=== PATIENT | female | born 1970 ===

== ENCOUNTER → 2019-02-06 | Outpatient (CLI) | payer BC ==
--- NOTE | 2019-02-06 16:47 | PCVCIMAG ---
APPROVED REPORT Study performed: 02/06/2019 15:22:05 Exam: Stress Echocardiogram Indication: Chest pain with exertion Patient Location: Echo lab Stress Nurse: Susana Valenzuela RN Room #: 2 Status: routine Ht: 4 ft 11 in HR: 60 bpm BP: 110/68 mmHg Rhythm: NSR Medical History Medical History: No history of CAD Previous Cardiac Procedures: none Pretest Chest Pain Characteristics: No chest pain Exercise History: Physically active Procedure The patient underwent an Exercise Stress Test using the Oswaldo Protocol. Blood pressure, heart rate, and EKG were monitored. An Echocardiogram was performed by survey cad technician in four stages in quad fashion. At peak stress, four selected images were obtained and placed side by side with resting images for comparison. Stress Test Details Stress Test: Exercise stress testing was performed using a Oswaldo protocol. HR Resting HR: 60 bpmMax Heart Rate (APMHR): 170 bpm Max HR Achieved: 146 bpmTarget HR (85% APMHR): 144 bpm % of APMHR: 85 Recovery HR: 82 bpm HR response to stress: Normal HR response to stress BP Resting BP: 110/68 mmHg Max BP: 152/80 mmHg Recovery BP: 122/64 mmHg BP response to stress: Normal blood pressure response to stress. ECG Resting ECG: Sinus Rhythm Stress ECG: Sinus Rhythm, nonspecific ST-T abnormalities ST Change: Non-ischemic Maximum ST Deviation: 1 mm Arrhythmia: .8 Recovery ECG: Sinus Rhythm Recovery ST Change: Non-ischemic Recovery ST Deviation: -0.90 mm Recovery Arrhythmia: rare PAC Clinical Reason for Termination: Maximal effort Stress Symptoms: none Exercise duration: 10 min 24 sec Highest Stage Achieved: Stage 4: 4.2 mph at 16% grade. Exercise capacity: 13.4 METs Overall Exercise Capacity for Age: Good Scale: Active Angina Score: None No complications. Stress ECG Conclusion Marion Treadmill Score is 5.0 which is Low risk. Pre-Stress Echo The resting Echocardiogram showed normal left ventricular contractility with an estimated Ejection Fraction of about 55-60%. Normal wall motion in all segments on baseline images. Post-Stress Echo The stress Echocardiogram showed normal left ventricular contractility with an estimated Ejection Fraction of about 65-70%. Normal augmentation of wall motion in all segments on post stress images. Clinical No clinical or ECG evidence for ischemia. Conclusion Clinical Response: Non-ischemic Exercise Capacity: Superior Stress ECG Response: Non-ischemic Stress Echo Images: Non-ischemic No clinical, EKG or echocardiographic evidence for ischemia. No echocardiographic evidence for exercise induced ischemia. Normal stress echocardiogram with maximal exercise stress. Normal color doppler. No regurgitation or stenosis present on pulmonic, mitral, tricuspid or aortic valves. Mildly sclerotic aortic valve without stenosis. No prior study available for comparison. <Conclusion> No clinical, EKG or echocardiographic evidence for ischemia. No echocardiographic evidence for exercise induced ischemia. Normal stress echocardiogram with maximal exercise stress. Normal color doppler. No regurgitation or stenosis present on pulmonic, mitral, tricuspid or aortic valves. Mildly sclerotic aortic valve without stenosis.
== END | disposition home or self-care (01) ==
LOC: PCVCIMAG 15:20
PROVIDERS: ATTEND Family Medicine
DX: I35.0 Nonrheumatic aortic (valve) stenosis (principal)
CPT/HCPCS: 93325; 93351